=== PATIENT | male | born 1990 | race African-American/Black ===

== ENCOUNTER 2018-05-17 07:58 | Emergency (ER) | payer SELFPAY ==
[~2018-05-17] VITALS: Ht 175.3 cm; Wt 99.3 kg
[2018-05-17 08:05] VITALS: BP 103/68
--- NOTE | 2018-05-17 08:15 | NUR ---
PT AMBULATES TO BED 5
[2018-05-17 08:29] VITALS: BP 103/68
--- NOTE | 2018-05-17 08:29 | NUR ---
I WAS IN BED 7 FOR GIVING IVF & MEDS . PT ELOPPED BEFORE SEEING THE PATIENT BUT DR NAVARRO TAKING TO THE PT WHITY.PATIENT ELOPED FROM FACILITY. DISCHARGE INSTRUCTIONS NOT GIVEN TO PATIENT. DR. NAVARRO NOTIFIED. Addendum: 05/17/18 at 0834 by [email or web address] I ASKED PT DURING HE WAS WALKING OUT HE SAID" I'M GOING TO MY CAR. Addendum: 05/17/18 at 0843 by [email or web address] REPORT TO MS RAIZA MOE NURSE & DR NAVARRO.
== END 2018-05-17 08:29 | disposition left against medical advice (07) ==
LOC: MED 07:58
DX: R05 Cough (principal)
CPT/HCPCS: 99281